=== PATIENT | female | born 1990 | race Caucasian/White ===

== ENCOUNTER 2023-09-30 15:39 | Emergency (ER) | payer OTHER ==
[2023-09-30 15:51] VITALS: BP 122/79; PULSE 105; RESP 18; TEMP 98.5; BMI 32.9
== END 2023-09-30 16:57 | disposition home or self-care (01) ==
LOC: JER 15:39 → JERFT 15:39
DX: H92.02 Otalgia, left ear (principal); H66.013 Acute suppurative otitis media with spontaneous rupture of ear drum, bilateral
CPT/HCPCS: 99283-25